=== PATIENT | female | born 1990 | race Caucasian/White ===

== ENCOUNTER 2016-07-19 20:54 | Emergency (ER) | payer BC ==
[2016-07-19 23:09] LABS: Hematocrit 41 % (35-47); Hemoglobin 13.3 g/dl (12.0-16.0); Mean Corpuscular HGB Conc 33 g/dl (31-36); Mean Corpuscular Hemoglobin 27 pg (27-31); Mean Corpuscular Volume 81 fL (80-97); Mean Platelet Volume 9 um3 (7.4-10.4); Red Blood Count 4.97 10^6/ul (4.0-5.4); Red Cell Distribution Width 13 % (10.5-15); White Blood Count 9.5 10^3/ul (3.5-10.8)
[2016-07-19 23:36] LABS: Albumin 4.2 g/dL (3.2-5.2); BUN/Creatinine Ratio 17.4 (8-20); Calcium 9.4 mg/dL (8.6-10.3); EGFR African American 103.4 (>60); EGFR Non-African American 80.4 (>60); Magnesium 1.9 mg/dL (1.9-2.7); Potassium 3.5 mmol/L (3.5-5.0); Total Bilirubin 0.3 mg/dL (0.2-1.0); Total Protein 7.2 g/dL (6.4-8.9)
--- NOTE | 2016-07-20 00:33 | ED ---
Arsen Abdalla Billy, scribed for De Molina MD on 07/19/16 at 2215 . Complex/Multi-Sys Presentation - HPI Summary HPI Summary: Patient is 25 y/o female coming to [facility] for evaluation of numbness, weakness, and palpitations. She states that 2 days ago, she began to have constant right- sided facial numbness. She then developed generalized weakness and decreased coordination. Six hours prior to arrival, she began to have intermittent palpitations, each episode lasting approximately 30 seconds. She denies any similar previous symptoms. She was recently started on spironolactone. - History Of Current Complaint Chief Complaint: EDGeneral Time Seen by Provider: 07/19/16 22:08 Hx Obtained From: Patient Onset/Duration: Gradual Onset, Lasting Days, Still Present Timing: Constant - facial numbness, Intermittent, Lasting: - palpitations, episodes lasting seconds Severity Currently: Moderate Severity Initially: Moderate Aggravating Factor(s): none Alleviating Factor(s): none Associated Signs And Symptoms: Positive: Weakness, Palpitations, Other - numbness, decreased coordination - Allergies/Home Medications Allergies/Adverse Reactions: Allergies Allergy/AdvReac Type Severity Reaction Status Date / Time Cephalexin [From Keflex] Allergy Hives Verified 03/28/16 12:29 Diphenhydramine Allergy Hallucinati Verified 03/28/16 12:29 [From Benadryl] ons Morphine Allergy Vomiting Verified 03/28/16 12:29 Penicillins [PCN] Allergy Hives Verified 03/28/16 12:29 Scopolamine Allergy Hallucinati Verified 03/28/16 12:29 ons Sulfa Antibiotics Allergy Hives Verified 03/28/16 12:29 PMH/Surg Hx/FS Hx/Imm Hx Endocrine/Hematology History: Denies: Hx Diabetes, Hx Thyroid Disease Cardiovascular History: Denies: Hx Hypertension Respiratory History: Denies: Hx Asthma, Hx Chronic Obstructive Pulmonary Disease (COPD) GI History: Denies: Hx Ulcer - Surgical History Surgery Procedure, Year, and Place: Cholecystectomy (2008) Tonsils and Adnoids ( 1988) Infectious Disease History: No Infectious Disease History: Denies: Hx Clostridium Difficile, Hx Hepatitis, Hx Human Immunodeficiency Virus (HIV), Hx of Known/Suspected MRSA, Hx Shingles, Hx Tuberculosis, Hx Known/ Suspected VRE, Hx Known/Suspected VRSA, History Other Infectious Disease, Traveled Outside the [place] in Last 30 Days - Family History Known Family History: Positive: Diabetes - Social History Alcohol Use: None Substance Use Type: Reports: None Smoking Status (MU): Never Smoked Tobacco Review of Systems Negative: Fever Positive: Palpitations Neurological: Other - decreased coordination Positive: Weakness, Numbness All Other Systems Reviewed And Are Negative: Yes Physical Exam Triage Information Reviewed: Yes Vital Signs On Initial Exam: Initial Vitals Temp Pulse Resp BP Pulse Ox 97.7 F 87 18 128/70 100 07/19/16 21:09 07/19/16 21:09 07/19/16 21:09 07/19/16 21:09 07/19/16 21:09 Vital Signs Reviewed: Yes Appearance: Positive: Well-Appearing, No Pain Distress Skin: Positive: Warm Head/Face: Positive: Normal Head/Face Inspection Eyes: Positive: NUSRAT ENT: Positive: Hearing grossly normal Neck: Positive: Supple Respiratory/Lung Sounds: Positive: Clear to Auscultation, Breath Sounds Present Cardiovascular: Positive: RRR Abdomen Description: Positive: Nontender, Soft Bowel Sounds: Positive: Present Musculoskeletal: Positive: Strength/ROM Intact Neurological: Positive: Sensory/Motor Intact, Alert, Oriented to Person Place, Time Psychiatric: Positive: Affect/Mood Appropriate Diagnostics - Vital Signs Vital Signs Temp Pulse Resp BP Pulse Ox 07/19/16 21:09 97.7 F 87 18 128/70 100 - Laboratory Lab Results: Lab Results 07/19/16 07/19/16 Range/Units 22:55 22:55 WBC 9.5 (3.5-10.8) 10^3/ul RBC 4.97 (4.0-5.4) 10^6/ul Hgb 13.3 (12.0-16.0) g/dl Hct 41 (35-47) % MCV 81 (80-97) fL MCH 27 (27-31) pg MCHC 33 (31-36) g/dl RDW 13 (10.5-15) % Plt Count 288 (150-450) 10^3/ul MPV 9 (7.4-10.4) um3 Neut % (Auto) 55.7 (38-83) % Lymph % (Auto) 37.3 (25-47) % [place] % (Auto) 4.7 (1-9) % Eos % (Auto) 1.4 (0-6) % Baso % (Auto) 0.9 (0-2) % Absolute Neuts (auto) 5.3 (1.5-7.7) 10^3/ul Absolute Lymphs (auto) 3.5 (1.0-4.8) 10^3/ul Absolute Monos (auto) 0.4 (0-0.8) 10^3/ul Absolute Eos (auto) 0.1 (0-0.6) 10^3/ul Absolute Basos (auto) 0.1 (0-0.2) 10^3/ul Absolute Nucleated RBC 0 10^3/ul Nucleated RBC % 0 Sodium 136 (133-145) mmol/L Potassium 3.5 (3.5-5.0) mmol/L Chloride 103 (101-111) mmol/L Carbon Dioxide 26 (22-32) mmol/L Anion Gap 7 (2-11) mmol/L BUN 15 (6-24) mg/dL Creatinine 0.86 (0.51-0.95) mg/dL Est GFR ( Amer) 103.4 (>60) Est GFR (Non-Af Amer) 80.4 (>60) BUN/Creatinine Ratio 17.4 (8-20) Glucose 99 (70-100) mg/dL Calcium 9.4 (8.6-10.3) mg/dL Magnesium 1.9 (1.9-2.7) mg/dL Total Bilirubin 0.30 (0.2-1.0) mg/dL AST 11 L (13-39) U/L ALT 17 (7-52) U/L Alkaline Phosphatase 45 (34-104) U/L Total Protein 7.2 (6.4-8.9) g/dL Albumin 4.2 (3.2-5.2) g/dL Globulin 3.0 (2-4) g/dL Albumin/Globulin Ratio 1.4 (1-3) Result Diagrams: 07/19/16 22:55 07/19/16 22:55 Lab Statement: Any lab studies that have been ordered have been reviewed, and results considered in the medical decision making process. Re-Evaluation - Re-Evaluation First Eval Change: Improved Complex Multi-Symp Course/Dx - Diagnoses Provider Diagnoses: Palpitations, Weakness Discharge - Discharge Plan Condition: Stable Disposition: HOME Patient Education Materials: Palpitations (ED), Weakness (ED) Referrals: Bud Thomson MD [Primary Care Provider] - The documentation as recorded by the Arsen crawford Billy accurately reflects the service I personally performed and the decisions made by me, De Molina MD.
[2016-07-20 00:41] VITALS: BP 123/64
== END 2016-07-20 00:43 | disposition home or self-care (01) ==
LOC: ED 20:54
DX: R00.2 Palpitations (principal); R53.1 Weakness
CPT/HCPCS: 36415; 80053; 83735; 85025; 99282

== ENCOUNTER 2017-07-24 23:34 | Emergency (ER) | payer BC, OTHER ==
[2017-07-25 00:47] VITALS: BP 140/74
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
== END 2017-07-25 00:45 | disposition home or self-care (01) ==
LOC: ED 23:34
DX: Z77.21 Contact with and (suspected) exposure to potentially hazardous body fluids (principal); S60.511A Abrasion of right hand, initial encounter; V49.88XA Car occupant (driver) (passenger) injured in other specified transport accidents, initial encounter; Y92.9 Unspecified place or not applicable
CPT/HCPCS: 36415; 86703; 86706; 86803; 87340; 99282